=== PATIENT | male | born 1940 | race Hispanic/Latino ===

== ENCOUNTER → 2019-03-31 | Day surgery (SDC) | payer OTHER ==
[2018-03-20 09:40] LABS: BASOPHILS % 0.5 % (0.0-1.0); EOSINOPHILS % 0.7 % (0.0-6.0); HEMATOCRIT 44.6 % (38.2-49.6); HEMOGLOBIN 14.6 g/dL (14.0-18.0); LYMPHOCYTES # (AUTO) 1.5 (1.0-3.2); LYMPHOCYTES % 26.3 % (18.0-39.1); MEAN CORPUSCULAR HEMOGLOBIN 29.3 pg (28-32); MEAN CORPUSCULAR HGB CONC 32.7 g/dL (31-35); MEAN CORPUSCULAR VOLUME 89.6 fL (81-99); MONOCYTES # (AUTO) 0.8 (0.2-0.8); NEUTROPHILS # (AUTO) 3.4 (2.1-6.9); NEUTROPHILS % 59.3 % (38.7-80.0); PLATELET COUNT 180 x10e3/uL (140-360); RED BLOOD COUNT 4.98 x10e6/uL (4.3-5.7); RED CELL DISTRIBUTION WIDTH 13.6 % (11.7-14.4)
[2018-03-20 10:03] LABS: ALANINE AMINOTRANSFERASE 52 IU/L (0-55); ALBUMIN 3.8 g/dL (3.5-5.0); ALBUMIN/GLOBULIN RATIO 1.1 (0.8-2.0); ALKALINE PHOSPHATASE 56 IU/L (40-150); ANION GAP 9.6 mmol/L (8-16); BLOOD UREA NITROGEN 12 mg/dL (7-26); BUN/CREATININE RATIO 15 (6-25); CALCIUM 9.7 mg/dL (8.4-10.2); CARBON DIOXIDE 31 mmol/L (22-29); CHLORIDE 105 mmol/L (98-107); EST GLOMERULAR FILTRATION RATE > 60 ML/MIN (60-); GLUCOSE 111 mg/dL (74-118); POTASSIUM 4.6 mmol/L (3.5-5.1); SODIUM 141 mmol/L (136-145)
[2018-03-20 10:04] LABS: INR 2.27; PROTHROMBIN TIME 23.5 seconds (11.9-14.5)
[2018-03-20 10:06] LABS: PARTIAL THROMBOPLASTIN TIME 48.5 seconds (23.8-35.5)
--- OUTSIDE RECORDS SUMMARY | 2018-06-18 17:39 | XMS REPORT | Clinical Summary ---
Author Author [facility] Organization [facility] Address Unknown Phone Unavailable Care Team Providers Care Rug [employer]ter [place] Name Role Phone Bhupendra Chinchilla MD PCP Allergies No Known Allergies Current Medications Prescription Sig. Disp. Refills Start End Date Status Date metFORMIN (GLUCOPHAGE) Take 500 mg by mouth 2 Active 500 mg tablet (two) times a day with meals. carvedilol (COREG) 12.5 Take 12.5 mg by mouth 2 Active MG tablet (two) times a day with meals. gabapentin (NEURONTIN) Take 300 mg by mouth 3 Active 300 mg capsule (three) times a day. famotidine (PEPCID) 40 MG Take 40 mg by mouth Active tablet daily. aspirin (ECOTRIN) 81 MG Take 81 mg by mouth Active enteric coated tablet daily. simvastatin (ZOCOR) 40 MG Take 40 mg by mouth Active tablet nightly. rivaroxaban (XARELTO) 15 Take 15 mg by mouth. Active mg tablet pantoprazole (PROTONIX) Take 40 mg by mouth Active 40 MG EC tablet daily. sucralfate (CARAFATE) 1 Take 1 g by mouth 4 Active gram tablet (four) times a day. traMADol (ULTRAM) 50 mg Take 50 mg by mouth every Active tablet 6 (six) hours as needed for moderate pain. digOXIN (LANOXIN) 125 mcg Take 125 mcg by mouth Active tablet daily. meclizine (ANTIVERT) 12.5 Take 12.5 mg by mouth 3 Active mg tablet (three) times a day as needed for dizziness. Active Problems Problem Noted Date Acute hepatitis 08/20/2017 Hypertension 08/20/2017 Mixed hyperlipidemia 08/20/2017 A-fib (HCC) 08/20/2017 Encounters Date Type Specialty Care Team Description 08/20/2017 Office Visit Hepatology Nishant Issa MD Acute hepatitis (Primary Trudi Suarez, PAC Dx); Hypertension, unspecified type; Mixed hyperlipidemia; Atrial fibrillation, unspecified type 06/26/2017 Office Visit Hepatology Nishant Issa MD Abnormal liver enzymes (Primary Dx); Chronic hepatitis 06/13/2017 Hospital Radiology Nishant Issa MD Abnormal liver enzymes Encounter 06/05/2017 Office Visit Hepatology Nishant Issa MD Abnormal liver enzymes (Primary Dx); Cirrhosis of liver without ascites, unspecified hepatic cirrhosis type; Mesenteric ischemia; Screening for cancer after 03/24/2017 Social History Tobacco Use Types Packs/Day Years Used Date Never Assessed Sex Assigned at Date Recorded Not on file Last Filed Vital Signs Vital Sign Reading Time Taken Blood Pressure 120/57 08/20/2017 11:30 AM [employer] Pulse 73 08/20/2017 11:30 AM [employer] Temperature 36.1 C (97 F) 06/26/2017 11:28 AM CDT Respiratory Rate 18 06/13/2017 2:30 PM CDT Oxygen Saturation 98% 08/20/2017 11:30 AM [employer] Inhaled Oxygen - - Concentration Weight 67.6 kg (149 lb) 08/20/2017 11:30 AM [employer] Height 182.9 cm (6') 08/20/2017 11:30 AM [employer] Body Mass Index 20.21 08/20/2017 11:30 AM [employer] Plan of Treatment Health Maintenance Due Date Last Done Comments DIABETIC FOOT EXAM 1949 DIABETIC RETINAL EYE EXAM 1950 URINE MICROALBUMIN 1949 SHINGRIX VACCINE (#1) 1989 ZOSTER VACCINE 1999 PNEUMOCOCCAL 2004 POLYSACCHARIDE VACCINE AGE 65 AND OVER PNEUMOCOCCAL-13 2004 INFLUENZA VACCINE 04/16/2018 Procedures Procedure Name Priority Date/Time Associated Diagnosis Comments CRYOGLOBULIN Routine 08/20/2017 Acute hepatitis Results for this 12:02 PM [employer] Hypertension, unspecified procedure are in the type results section. Mixed hyperlipidemia Atrial fibrillation, unspecified type COMPREHENSIVE METABOLIC Routine 08/20/2017 Acute hepatitis Results for this PANEL 12:02 PM [employer] Hypertension, unspecified procedure are in the type results section. Mixed hyperlipidemia Atrial fibrillation, unspecified type CBC WITH PLATELET AND Routine 08/20/2017 Acute hepatitis Results for this DIFFERENTIAL 12:02 PM [employer] Hypertension, unspecified procedure are in the type results section. Mixed hyperlipidemia Atrial fibrillation, unspecified type PROTHROMBIN TIME WITH INR Routine 06/26/2017 Abnormal liver enzymes Results for this 12:08 PM CDT Chronic hepatitis procedure are in the results section. GGT Routine 06/26/2017 Abnormal liver enzymes Results for this 12:08 PM CDT Chronic hepatitis procedure are in the results section. COMPREHENSIVE METABOLIC Routine 06/26/2017 Abnormal liver enzymes Results for this PANEL 12:08 PM CDT Chronic hepatitis procedure are in the results section. ALPHA FETOPROTEIN Routine 06/26/2017 Abnormal liver enzymes Results for this 12:08 PM CDT Chronic hepatitis procedure are in the results section. CBC WITH PLATELET AND Routine 06/26/2017 Abnormal liver enzymes Results for this DIFFERENTIAL 12:08 PM CDT Chronic hepatitis procedure are in the results section. AMMONIA LEVEL Routine 06/26/2017 Abnormal liver enzymes Results for this 12:08 PM CDT Chronic hepatitis procedure are in the results section. POC GLUCOSE Routine 06/13/2017 Results for this 1:27 PM CDT procedure are in the results section. SURGICAL PATHOLOGY Routine 06/13/2017 Results for this REQUEST 1:03 PM CDT procedure are in the results section. IR TRANSJUGULAR LIVER Routine 06/13/2017 Abnormal liver enzymes Results for this BIOPSY 11:59 AM CDT procedure are in the results section. POC GLUCOSE Routine 06/13/2017 Results for this 10:31 AM CDT procedure are in the results section. MITOCHONDRIAL ANTIBODY Routine 06/05/2017 Abnormal liver enzymes Results for this W/REFL TITER 12:23 PM CDT Cirrhosis of liver procedure are in the without ascites, results section. unspecified hepatic cirrhosis type Mesenteric ischemia Screening for cancer BALJIT SCREEN W IFA W REFLEX Routine 06/05/2017 Abnormal liver enzymes Results for this TO TITER 12:23 PM CDT Cirrhosis of liver procedure are in the without ascites, results section. unspecified hepatic cirrhosis type Mesenteric ischemia Screening for cancer F-ACTIN (SMOOTH MUSCLE) Routine 06/05/2017 Abnormal liver enzymes Results for this ANTIBODY, IGG 12:23 PM CDT Cirrhosis of liver procedure are in the without ascites, results section. unspecified hepatic cirrhosis type Mesenteric ischemia Screening for cancer THYROID STIMULATING Routine 06/05/2017 Abnormal liver enzymes Results for this HORMONE 12:23 PM CDT Cirrhosis of liver procedure are in the without ascites, results section. unspecified hepatic cirrhosis type Mesenteric ischemia Screening for cancer RPR TITER WITH REFLEX TO Routine 06/05/2017 Abnormal liver enzymes Results for this CONFIRMATION 12:23 PM CDT Cirrhosis of liver procedure are in the without ascites, results section. unspecified hepatic cirrhosis type Mesenteric ischemia Screening for cancer HEPATITIS E VIRUS AB, IGM Routine 06/05/2017 Abnormal liver enzymes Results for this BY DONNA 12:23 PM CDT Cirrhosis of liver procedure are in the without ascites, results section. unspecified hepatic cirrhosis type Mesenteric ischemia Screening for cancer HEPATITIS E VIRUS (HEV) Routine 06/05/2017 Abnormal liver enzymes Results for this ANTIBODY (IGG) 12:23 PM CDT Cirrhosis of liver procedure are in the without ascites, results section. unspecified hepatic cirrhosis type Mesenteric ischemia Screening for cancer HEPATITIS B CORE ANTIBODY Routine 06/05/2017 Abnormal liver enzymes Results for this TOTAL 12:23 PM CDT Cirrhosis of liver procedure are in the without ascites, results section. unspecified hepatic cirrhosis type Mesenteric ischemia Screening for cancer HEMOGLOBIN A1C Routine 06/05/2017 Abnormal liver enzymes Results for this 12:23 PM CDT Cirrhosis of liver procedure are in the without ascites, results section. unspecified hepatic cirrhosis type Mesenteric ischemia Screening for cancer FERRITIN LEVEL Routine 06/05/2017 Abnormal liver enzymes Results for this 12:23 PM CDT Cirrhosis of liver procedure are in the without ascites, results section. unspecified hepatic cirrhosis type Mesenteric ischemia Screening for cancer SEDIMENTATION RATE Routine 06/05/2017 Abnormal liver enzymes Results for this 12:23 PM CDT Cirrhosis of liver procedure are in the without ascites, results section. unspecified hepatic cirrhosis type Mesenteric ischemia Screening for cancer PROTHROMBIN TIME WITH INR Routine 06/05/2017 Abnormal liver enzymes Results for this 12:23 PM CDT Cirrhosis of liver procedure are in the without ascites, results section. unspecified hepatic cirrhosis type Mesenteric ischemia Screening for cancer GGT Routine 06/05/2017 Abnormal liver enzymes Results for this 12:23 PM CDT Cirrhosis of liver procedure are in the without ascites, results section. unspecified hepatic cirrhosis type Mesenteric ischemia Screening for cancer COMPREHENSIVE METABOLIC Routine 06/05/2017 Abnormal liver enzymes Results for this PANEL 12:23 PM CDT Cirrhosis of liver procedure are in the without ascites, results section. unspecified hepatic cirrhosis type Mesenteric ischemia Screening for cancer CBC WITH PLATELET AND Routine 06/05/2017 Abnormal liver enzymes Results for this DIFFERENTIAL 12:23 PM CDT Cirrhosis of liver procedure are in the without ascites, results section. unspecified hepatic cirrhosis type Mesenteric ischemia Screening for cancer BILE ACIDS, TOTAL Routine 06/05/2017 Abnormal liver enzymes Results for this 12:23 PM CDT Cirrhosis of liver procedure are in the without ascites, results section. unspecified hepatic cirrhosis type Mesenteric ischemia Screening for cancer ALPHA FETOPROTEIN Routine 06/05/2017 Abnormal liver enzymes Results for this 12:23 PM CDT Cirrhosis of liver procedure are in the without ascites, results section. unspecified hepatic cirrhosis type Mesenteric ischemia Screening for cancer AMMONIA LEVEL Routine 06/05/2017 Abnormal liver enzymes Results for this 12:23 PM CDT Cirrhosis of liver procedure are in the without ascites, results section. unspecified hepatic cirrhosis type Mesenteric ischemia Screening for cancer ALPHA-1 ANTITRYPSIN Routine 06/05/2017 Abnormal liver enzymes Results for this PHENOTYPE 12:23 PM CDT Cirrhosis of liver procedure are in the without ascites, results section. unspecified hepatic cirrhosis type Mesenteric ischemia Screening for cancer ALPHA-1 ANTITRYPSIN LEVEL Routine 06/05/2017 Abnormal liver enzymes Results for this 12:23 PM CDT Cirrhosis of liver procedure are in the without ascites, results section. unspecified hepatic cirrhosis type Mesenteric ischemia Screening for cancer after 03/24/2017 Results * Cryoglobulin (08/20/2017 12:02 PM) Cryoglobulin NEGATIVE NEGATIVE [facility] % Cryocrit NONE DETECTED NONE DETECTED % [facility] Comment: [facility] The Cryocrit is primarily [facility] intended for following a patient with previously defined and quantitated cryoglobulins. The cryocrit may consist of cryoglobulins, fibrins, complement, or mixtures of these. If not previously characterized, consider ordering test code 66684, Cryoglobulin Screen with Reflex to Cryglobulin Profile, Serum. This test was developed and its analytical performance characteristics have been determined by [facility]. It has not been cleared or approved by FDA. This assay has been validated pursuant to the CLIA regulations and is used for clinical purposes. Specimen Blood Narrative Performed At FASTING:NO [facility] FASTING: NO Other Results Text Performing Organization Information: Site ID: [id number] Name: [facility], Address: [address] [place] [id number] Director: Hipolito Sánchez MD,PhD Performing Organization Address City/State/Zipcode Phone Number [facility]ANC[facility]OM[facility]/NOELLE [address] [place] [address] [phone] [facility] [address] * CBC with platelet and differential (08/20/2017 12:02 PM) Only the most recent of 3 results within the time period is included. WBC 7.1 3.8 - 10.8 Thousand/uL [employer] [facility] RBC 5.24 4.20 - 5.80 Million/uL [employer] [facility] HGB 15.4 13.2 - 17.1 g/dL [employer] [facility] HCT 46.2 38.5 - 50.0 % [employer] [facility] MCV 88.2 80.0 - 100.0 fL [employer] [facility] MCH 29.4 27.0 - 33.0 pg [employer] [facility] MCHC 33.3 32.0 - 36.0 g/dL [employer] [facility] RDW 12.9 11.0 - 15.0 % [employer] [facility] Platelet count 179 140 - 400 Thousand/uL [employer] [facility] MPV 11.6 7.5 - 12.5 fL [employer] [facility] Neutrophils, absolute 4,601 1,500 - 7,800 cells/uL [employer] [facility] Lymphocytes, absolute 1,612 850 - 3,900 cells/uL [employer] [facility] Monocytes, absolute 795 200 - 950 cells/uL [employer] [facility] Eosinophils, absolute 43 15 - 500 cells/uL [employer] [facility] Basophils, absolute 50 0 - 200 cells/uL [employer] [facility] Neutrophils 64.8 % [employer] [facility] Lymphocytes 22.7 % [employer] [facility] Monocytes 11.2 % [employer] [facility] Eosinophils 0.6 % [employer] [facility] Basophils + RC 0.7 % [employer] [facility] Specimen Blood Narrative Performed At FASTING:NO [facility] FASTING: NO Other Results Text Performing Organization Information: Site ID: [id number] Name: [facility] Address: [address] [place] [phone] Director: Sobia Bajwa MD Performing Organization Address City/State/Zipcode Phone Number [facility] [place] [phone] * Comprehensive metabolic panel (08/20/2017 12:02 PM) Only the most recent of 3 results within the time period is included. Glucose 106 (H) 65 - 99 mg/dL [employer] Comment: MENASHA Fasting reference interval For someone without known diabetes, a glucose value between 100 and 125 mg/dL is consistent with prediabetes and should be confirmed with a follow-up test. BUN, whole blood 10 7 - 25 mg/dL [employer] [facility] Creatinine 0.99 0.70 - 1.18 mg/dL [employer] Comment: [facility]SHA For patients >49 years of age, the reference limit for Creatinine is approximately 13% higher for people identified as -St Helenian. EGFR Non-Afr. [place]ian 73 > OR=60 mL/min/1.73m2 [facility] EGFR 85 > OR=60 mL/min/1.73m2 [facility] BUN/creatinine ratio NOT APPLICABLE 6 - 22 (calc) [facility] Sodium 142 135 - 146 mmol/L [facility] Potassium 4.7 3.5 - 5.3 mmol/L [facility] Chloride 104 98 - 110 mmol/L [facility] CO2 30 20 - 31 mmol/L [facility] Calcium 10.2 8.6 - 10.3 mg/dL [facility] Protein 7.2 6.1 - 8.1 g/dL [facility] Albumin, S 4.5 3.6 - 5.1 g/dL [facility] Globulin, total 2.7 1.9 - 3.7 g/dL (calc) [facility] Albumin/globulin ratio 1.7 1.0 - 2.5 (calc) [facility] Total bilirubin 0.9 0.2 - 1.2 mg/dL [facility] Alkaline phosphatase 63 40 - 115 U/L [facility] AST 57 (H) 10 - 35 U/L [facility] ALT 69 (H) 9 - 46 U/L [facility] Specimen Blood Narrative Performed At FASTING:NO [facility] FASTING: NO Other Results Text Performing Organization Information: Site ID: [id number] Name: [facility] Address: [address] [place] [phone] Director: Sobia Bajwa MD Performing Organization Address City/State/Zipcode Phone Number [place] [phone] * Alpha fetoprotein (06/26/2017 12:08 PM) Only the most recent of 2 results within the time period is included. Alpha fetoprotein 6.7 (H) <6.1 ng/mL [facility] Comment: [facility] This test was performed using II the Krystin Grey chemiluminescent method. Values obtained from different assay methods cannot be used interchangeably. AFP levels, regardless of value, should not be interpreted as absolute evidence of the presence or absence of disease. Specimen Blood Other Results Text Performing Organization Information: Site ID: [id number] Name: [facility] Address: [address] [place] [address] Director: Dr. Nishant Mckeon Performing Organization Address City/[facility]/[place] Phone Number [employer] [address] [address] II * Prothrombin time with INR (06/26/2017 12:08 PM) Only the most recent of 2 results within the time period is included. INR 1.3 (H) [facility] Comment: [facility] Reference Range 0.9-1.1 Moderate-intensity Warfarin Therapy 2.0-3.0 Higher-intensity Warfarin Therapy 3.0-4.0 Prothrombin time 14.1 (H) 9.0 - 11.5 sec [facility] Comment: MENASHA For more information on this test, go to: http://[email or web address].com/faq/CMZ226 Specimen Blood Other Results Text Performing Organization Information: Site ID: [id number] Name: [facility] Address: [address] [place] [phone] Director: Sobia Bajwa MD Performing Organization Address City/[facility]/[place] Phone Number [employer] [address] [address] [phone] * GGT (06/26/2017 12:08 PM) Only the most recent of 2 results within the time period is included. GGT 77 (H) 3 - 70 U/L [employer] [facility] Specimen Blood Other Results Text Performing Organization Information: Site ID: [id number] Name: [facility] Address: [address] [place] [phone] Director: Sobia Bajwa MD Performing Organization Address City/[facility]/Zipcode Phone Number [employer] [address] [address] * Ammonia level (06/26/2017 12:08 PM) Only the most recent of 2 results within the time period is included. Ammonia 53 (H) < OR=47 umol/L [employer] [facility] Specimen Blood Other Results Text Performing Organization Information: Site ID: [id number] Name: [facility] Address: [address] [place], [place] [phone] Director: Sobia Bajwa MD Performing Organization Address City/[facility]/Zipcode Phone Number [employer] JONES [address] [place] [address] * POC glucose (06/13/2017 1:27 PM) Only the most recent of 2 results within the time period is included. POC glucose 84 65 - 99 mg/dL [facility] DEPARTMENT OF Comment: PATHOLOGY AND H Notified RN GENOMIC MEDICINE Meter ID: [id number] Environmental Permitting Specialist: Lasha Jj Performing Organization Address City/State/Zipcode Phone Number [facility] DEPARTMENT OF [address] [place] [address] PATHOLOGY AND GENOMIC MEDICINE * Surgical pathology request (06/13/2017 1:03 PM) [facility] DEPARTMENT OF PATHOLOGY AND GENOMIC MEDICINE Surgical pathology report See link below for PDF Lab [facility] DEPARTMENT OF Report PATHOLOGY AND GENOMIC MEDICINE Performing Organization Address [facility] Phone Number [facility] [place] [address] PATHOLOGY AND GENOMIC MEDICINE * IR Transjugular Liver Biopsy (06/13/2017 11:59 AM) Narrative Performed At EXAMINATION: IR TRANSJUGULAR LIVER BIOPSY [facility] CLINICAL HISTORY: R74.8 Abnormal levels of other serum enzymes, ABNORMAL LIVER FUNCTION TESTS PROCEDURE: Transjugular liver biopsy with portal venous pressure measurements Performing Radiologist: Sg Martínez MD Assistants: None Pre Procedure Diagnosis: R74.8 Abnormal levels of other serum enzymes, ABNORMAL LIVER FUNCTION TESTS Post Procedure Diagnosis: R74.8 Abnormal levels of other serum enzymes, ABNORMAL LIVER FUNCTION TESTS Indication: Elevated liver function tests. Concern for medication-induced hepatitis. Complications: No immediate post procedure complications. IMPRESSION: 1. Technically successful transjugular liver biopsy from the right hepatic vein. 2. Portal venous pressure measurements: Right Atrium: 1 mmHg Free Hepatic: 1 mmHg Wedge Hepatic: 4 mmHg 3. Venogram of the right hepatic vein shows sluggish flow without stenosis. 4. The right internal jugular vein is patent and compressible on pre-procedure ultrasound. PLAN: The patient will be observed for approximately 3 hours in the recovery area to monitor vital signs. If vital signs are stable, the patient will be discharged home. -- -- PROCEDURE SUMMARY: 1. Venous access with ultrasound guidance 2. Right hepatic venogram 3. Right atrial as well as hepatic/portal venous pressure measurements 4. Transjugular liver biopsy PROCEDURE DETAILS: Pre-procedure: Comparison studies: None Written and informed consent for the procedure and monitored conscious sedation was obtained from the patient. Prophylactic antibiotics: None Preparation: The right neck was prepared and draped using all elements of maximal sterile barrier technique including sterile gloves, sterile gown, catheter, mask, large sterile sheet, sterile ultrasound probe cover, hand hygiene and cutaneous antisepsis using chlorhexidine. Anesthesia/Sedation: Level of anesthesia: Moderate Sedation Medications used: Fentanyl and Versed, 1% lidocaine Anesthesia administration: Pulse oximetry, heart rate, and blood pressure were continuously monitored by a radiology nurse and the performing provider. Duration of intraservice geck-hi-[id number] anesthesia/sedation: 21 minutes Access: Local anesthesia was administered. The right internal jugular vein was evaluated with preprocedure ultrasound and noted to be patent. Real-time ultrasound was used to visualize needle entry into the vessel and a permanent image was stored. A 0.035 inch Amplatz was advanced into the inferior vena cava and an image was archived. Access technique: 5 Montenegrin micropuncture set Transjugular liver biopsy: A 10 Montenegrin sheath was advanced over the Amplatz wire and positioned within the right atrium. Using a 5 Montenegrin directional catheter, the right hepatic vein was accessed and a venogram was performed confirming positioning. Free, portal venous, and right atrial pressures were then obtained. The sheath was then advanced into the right hepatic vein through which a biopsy needle kit was advanced and 4 x 18-gauge core biopsies were obtained. Biopsy equipment: Dextera Biopsy needle gauge: 18 gauge Closure: The catheters and wires were then removed and hemostasis was achieved with manual compression. Access site closure technique: Manual compression Contrast: Contrast agent: Omnipaque Contrast volume: N/A Radiation dose: Total Fluoroscopic dose: Reference air Kerma 52 mGy. Additional details: Additional description of procedure: N/A Additional findings: N/A Equipment details: N/A Estimated blood loss: Less than 10 cc [facility]-[id number] [facility]-[id number] Procedure Note Hm Interface, Radiology Results Incoming - 06/13/2017 6:30 PM CDT EXAMINATION: IR TRANSJUGULAR LIVER BIOPSY CLINICAL HISTORY: R74.8 Abnormal levels of other serum enzymes, ABNORMAL LIVER FUNCTION TESTS PROCEDURE: Transjugular liver biopsy with portal venous pressure measurements Performing Radiologist: Sg Martínez MD Assistants: None Pre Procedure Diagnosis: R74.8 Abnormal levels of other serum enzymes, ABNORMAL LIVER FUNCTION TESTS Post Procedure Diagnosis: R74.8 Abnormal levels of other serum enzymes, ABNORMAL LIVER FUNCTION TESTS Indication: Elevated liver function tests. Concern for medication-induced hepatitis. Complications: No immediate post procedure complications. IMPRESSION: 1. Technically successful transjugular liver biopsy from the right hepatic vein. 2. Portal venous pressure measurements: Right Atrium: 1 mmHg Free Hepatic: 1 mmHg Wedge Hepatic: 4 mmHg 3. Venogram of the right hepatic vein shows sluggish flow without stenosis. 4. The right internal jugular vein is patent and compressible on pre- procedure ultrasound. PLAN: The patient will be observed for approximately 3 hours in the recovery area to monitor vital signs. If vital signs are stable, the patient will be discharged home. PROCEDURE SUMMARY: 1. Venous access with ultrasound guidance 2. Right hepatic venogram 3. Right atrial as well as hepatic/portal venous pressure measurements 4. Transjugular liver biopsy PROCEDURE DETAILS: Pre-procedure: Comparison studies: None Written and informed consent for the procedure and monitored conscious sedation was obtained from the patient. Prophylactic antibiotics: None Preparation: The right neck was prepared and draped using all elements of maximal sterile barrier technique including sterile gloves, sterile gown, catheter, mask, large sterile sheet, sterile ultrasound probe cover, hand hygiene and cutaneous antisepsis using chlorhexidine. Anesthesia/Sedation: Level of anesthesia: Moderate Sedation Medications used: Fentanyl and Versed, 1% lidocaine Anesthesia administration: Pulse oximetry, heart rate, and blood pressure were continuously monitored by a radiology nurse and the performing provider. Duration of intraservice [id number] anesthesia/sedation: 21 minutes Access: Local anesthesia was administered. The right internal jugular vein was evaluated with preprocedure ultrasound and noted to be patent. Real-time ultrasound was used to visualize needle entry into the vessel and a permanent image was stored. A 0.035 inch Amplatz was advanced into the inferior vena cava and an image was archived. Access technique: 5 Montenegrin micropuncture set Transjugular liver biopsy: A 10 Montenegrin sheath was advanced over the Amplatz wire and positioned within the right atrium. Using a 5 Montenegrin directional catheter, the right hepatic vein was accessed and a venogram was performed confirming positioning. Free, portal venous, and right atrial pressures were then obtained. The sheath was then advanced into the right hepatic vein through which a biopsy needle kit was advanced and 4 x 18- gauge core biopsies were obtained. Biopsy equipment: Dextera Biopsy needle gauge: 18 gauge Closure: The catheters and wires were then removed and hemostasis was achieved with manual compression. Access site closure technique: Manual compression Contrast: Contrast agent: Omnipaque Contrast volume: N/A Radiation dose: Total Fluoroscopic dose: Reference air Kerma 52 mGy. Additional details: Additional description of procedure: N/A Additional findings: N/A Equipment details: N/A Estimated blood loss: Less than 10 cc [facility]-[id number] [facility]-[id number] Performing Organization Address City/State/Zipcode Phone Number [address] [place] [address] * Hepatitis E virus (HEV) antibody (IgG) (06/05/2017 12:23 PM) Hepatitis E IgG NOT DETECTED [email or web address] Comment: REFERENCE RANGE: NOT DETECTED Hepatitis E virus (HEV) is a major cause of enteric non-A hepatitis worldwide. HEV IgG is typically detected within one month after infection, and persists for months to years after recovery. Approximately 20% of the population is positive for HEV IgG, indicating that HEV exposure is more common than previously thought. This test was developed and its analytical performance characteristics have been determined by [facility]. It has not been cleared or approved by FDA. This assay has been validated pursuant to the CLIA regulations and is used for clinical purposes. Narrative Performed At FASTING:NO [facility]ST Other Results Text Performing Organization Information: Site ID: [id number] Name: [facility] Address: [address] [place] [phone] Director: Walt Morrison MD Performing Organization Address [facility]ust[facility] Phone Number Lolay [address] [place] [phone] * BALJIT SCREEN W IFA W REFLEX TO TITER (06/05/2017 12:23 PM) BALJIT screen NEGATIVE NEGATIVE [facility] Comment: [facility] BALJIT IFA is a first line screen II for detecting the presence of up to approximately 150 autoantibodies in various autoimmune diseases. A negative BALJIT IFA result suggests BALJIT-associated autoimmune diseases are not present at this time. Visit Physician FAQs for interpretation of all antibodies in the [place], prevalence, and association with diseases at http://education.Mpax.com/ faq/FDN430 Specimen Blood Narrative Performed At FASTING:NO [facility] Other Results Text Performing Organization Information: Site ID: IG Name: [facility] Address: [address] [place] [address] Director: Dr. Nishant Mckeno Performing Organization Address [facility]/Zipcode Phone Number Technology [employer] [place] [address] II * MITOCHONDRIAL ANTIBODY W/REFL TITER (06/05/2017 12:23 PM) Mitochondrial Ab NEGATIVE NEGATIVE [facility] Comment: [employer] This test was developed and [facility] its analytical performance characteristics have been determined by [facility]. It has not been cleared or approved by FDA. This assay has been validated pursuant to the CLIA regulations and is used for clinical purposes. Mitochondrial Ab titer TNP titer [facility] Comment: [employer] TNP-Screening test Negative or SJC Not Detected. Titer not performed. Narrative Performed At FASTING:NO [facility] Other Results Text Performing Organization Information: Site ID: EZ Name: [facility] [facility], Address: [address] [place] [phone] Director: Hipolito Sánchez MD,PhD Performing Organization Address [facility]/[place]ust[place] Phone Number Technology [employer]/DRAKE[address] [facility] [address] * RPR titer with reflex to confirmation (06/05/2017 12:23 PM) RPR (dx) w/refl titer and NON-REACTIVE NON-REACTIVE [facility] confirmatory testing MENASHA Specimen Blood Narrative Performed At FASTING:NO [facility] Other Results Text Performing Organization Information: Site ID: RGA Name: [facility] Address: [address] [place] [phone] Director: Sobia Bajwa MD Performing Organization Address [facility]/[place] Phone [place] [address] [phone] * Hepatitis E virus Ab, IgM by DONNA (06/05/2017 12:23 PM) Hepatitis E IgM NOT DETECTED [facility] Comment: REFERENCE RANGE: NOT DETECTED Hepatitis E Virus (HEV) is a major cause of enteric non-A hepatitis worldwide. HEV IgM is typically detected within 2-4 weeks after infection, and then persists for about two months This test was developed and its analytical performance characteristics have been determined by [facility]. It has not been cleared or approved by FDA. This assay has been validated pursuant to the CLIA regulations and is used for clinical purposes. Specimen Blood Narrative Performed At FASTING:NO [facility]ST Other Results Text Performing Organization Information: Site ID: TXC Name: [facility] Address: [address] [place] [phone] Director: Walt Morrison MD Performing Organization Address City/State/Zipcode Phone Number FRNACIA [email or web address] [address] [place] [address] [phone] * Alpha-1 antitrypsin phenotype (06/05/2017 12:23 PM) Alpha-1 antitrypsin SEE NOTE [facility] Comment: DIAGNOSTICS/NOELLE THIS PATIENT'S [facility] [id number]-[id number] PHENOTYPE IS PI*MM. 90% of normal individuals have the MM phenotype, with normal quantitative AAT levels. Many phenotypic patterns have been described, including deficiency states with F, S, Z, or other alleles. As a general estimation, compared to M allele of 100% of normal V-0-Fojlmwoaamv protein, the S allele produces approximately 60% and the Z allele 20%. For example, an MS phenotype would have about 80% of normal D-4-Yihxzmgvjsi protein level, a 50% contribution from the M allele and 30% from the S allele. A ZZ phenotype would have about 20% of normal levels, a 10% contribution from each Z gene. The F allele has normal D-3-Vpnpbeqygtt levels, but the kinetics of elastase inhibition is not as efficient as an M allele product; F alleles should be considered functionally mildly deficient. Other variants are identifiable by phenotypic analysis. These include CM, DP, EM, GM, IS, LM, M1M2, M3M3, MP, MT, XX, MY, and M1N. I, P, T and null alleles are considered deleterious. C, D, E, G, L, M1, M2, M3, X and Y alleles are generally considered normal variants. The MZ-Perdomo phenotype is a normal variant; care should be taken to avoid confusion with the deficient MZ phenotype. Specimen Blood Narrative Performed At FASTING:NO [facility]ST Other Results Text Performing Organization Information: Site ID: EZ Name: [facility], Address: [address] [place] [phone] Director: Hipolito Sánchez MD,PhD Performing Organization Address [facility]/[employer] Phone Number Technology [employer]/DRAKE [address] [place] [address] [phone] [facility] [address] * F-actin (smooth muscle) antibody, IgG (06/05/2017 12:23 PM) F-actin (smooth muscle) <20 U [facility] Ab, IgG Comment: DIAGNOSTICS/DRAKE Reference [facility] Range: <20 NEGATIVE > OR=20 POSITIVE Antibodies recognizing actin are the main component of smooth muscle antibodies associated with autoimmune liver disease. Actin antibodies are found in approximately 75% of patients with autoimmune hepatitis (AIH) type 1, approximately 65% of patients with autoimmune cholangitis, approximately 30% of patients with primary biliary cirrhosis, and approximately 2% of healthy people. High values are closely correlated with AIH type 1. Specimen Blood Narrative Performed At FASTING:NO [facility] Other Results Text Performing Organization Information: Site ID: EZ Name: [employer] [facility], Address: [address] [place] [phone] Director: Hipolito Sánchez MD,PhD Performing Organization Address [facility] Phone Number Technology [employer] [address] [place] [address] [facility] [address] * Alpha-1 antitrypsin level (06/05/2017 12:23 PM) Alpha-1 antitrypsin 170 83 - 199 mg/dL [facility] II Specimen Blood Narrative Performed At FASTING:NO [facility]ST Other Results Text Performing Organization Information: Site ID: IG Name: [facility] Address: [address] [place] [address] Director: Dr. Nishant Mckeon Performing Organization Address [facility]/[place] Phone Number [facility] [address] [place] [address] II * Bile acids, total (06/05/2017 12:23 PM) Bile acids, total 9 0 - 19 umol/L [employer] [place] Specimen Blood Narrative Performed At FASTING:NO [facility] Other Results Text Performing Organization Information: Site ID: AMD Name: [facility] Address: [address] [place] [address] Director: Marshall Stovall M.D.,PhD Performing Organization Address City/State/Zipcode Phone Number [facility] FRANCIA [place]TGOMERY/NOELLE [address] [place], [place] * Hepatitis B core antibody total (06/05/2017 12:23 PM) Hepatitis B core total Ab NON-REACTIVE NON-REACTIVE [employer] MENASHA Specimen Blood Narrative Performed At FASTING:NO [facility]ST Other Results Text Performing Organization Information: Site ID: RGA Name: [facility] Address: [address] [place] [phone] Director: Sobia Bajwa MD Performing Organization Address [facility]/State/Rustcode Phone Number Technology [employer] [address] [address] * Sedimentation rate (06/05/2017 12:23 PM) Sedimentation rate 6 < OR=20 mm/h [employer] MENASHA Specimen Blood Narrative Performed At FASTING:NO [facility] Other Results Text Performing Organization Information: Site ID: RGA Name: [facility] Address: [address] [place] [phone] Director: Sobia Bajwa MD Performing Organization Address [facility]/[place] Phone Number Technology [employer] [address] [address] * Thyroid stimulating hormone (06/05/2017 12:23 PM) TSH 0.86 0.40 - 4.50 mIU/L [employer] MENASHA Specimen Blood Narrative Performed At FASTING:NO [facility] Other Results Text Performing Organization Information: Site ID: RGA Name: [facility] Address: [address] [place] [phone] Director: Sobia Bajwa MD Performing Organization Address [facility]/[employer] Phone Number Technology [employer] [address] [address] [phone] * Hemoglobin A1c (06/05/2017 12:23 PM) Hemoglobin A1C 6.2 (H) <5.7 % of total Hgb [employer] Comment: MENASHA For someone without known diabetes, a hemoglobin A1c value between 5.7% and 6.4% is consistent with prediabetes and should be confirmed with a follow-up test. For someone with known diabetes, a value <7% indicates that their diabetes is well controlled. A1c targets should be individualized based on duration of diabetes, age, comorbid conditions, and other considerations. This assay result is consistent with an increased risk of diabetes. Currently, no consensus exists regarding use of hemoglobin A1c for diagnosis of diabetes for children. Specimen Blood Narrative Performed At FASTING:NO [facility] Other Results Text Performing Organization Information: Site ID: RGA Name: [facility] Address: [address] [place] [phone] Director: Sobia Bajwa MD Performing Organization Address City/State/Rust[place] Phone Number Technology [employer] [address] [address] * Ferritin level (06/05/2017 12:23 PM) Ferritin level 36 20 - 380 ng/mL [employer] MENASHA Specimen Blood Narrative Performed At FASTING:NO [facility] Other Results Text Performing Organization Information: Site ID: RGA Name: [facility] Address: [address] [place] [phone] Director: Sobia Bajwa MD Performing Organization Address City/State/Zipcode Phone Number [employer] [address] [address] [phone] after 03/24/2017 Insurance Payer Benefit Subscriber ID Type Phone Address Plan / Group [employer] TEX[employer]US xxxxxxxxx [facility]
--- OUTSIDE RECORDS SUMMARY | 2018-06-18 21:34 | XMS REPORT | Clinical Summary ---
Author Author [facility] Address Unknown Phone Unavailable Care Team Providers Care Cafeteria Aide Name Role Phone Bhupendra Chinchilla MD PCP [...] type; Mesenteric ischemia; Screening for cancer after 04/09/2017 Social History Tobacco Use Types Packs/Day Years Used Date Never Assessed Sex Assigned at Date Recorded Not on file Last Filed Vital Signs Vital Sign Reading Time Taken Blood Pressure 120/57 08/20/2017 11:30 AM [employer]MENT[employer]AD[employer] Pulse 73 08/20/2017 11:30 AM ENVIRONMENTAL HEALTH AND SAFETY LEADER Temperature 36.1 C (97 F) 06/26/2017 11:28 AM CDT Respiratory Rate 18 06/13/2017 2:30 PM CDT Oxygen Saturation 98% 08/20/2017 11:30 AM ENVIRONMENTAL HEALTH AND SAFETY LEADER Inhaled Oxygen - - Concentration Weight 67.6 kg (149 lb) 08/20/2017 11:30 AM ENVIRONMENTAL HEALTH AND SAFETY LEADER Height 182.9 cm (6') 08/20/2017 11:30 AM ENVIRONMENTAL HEALTH AND SAFETY LEADER Body Mass Index 20.21 08/20/2017 11:30 AM ENVIRONMENTAL HEALTH AND SAFETY LEADER Plan of Treatment Health Maintenance Due Date Last Done Comments DIABETIC FOOT EXAM 1949 DIABETIC RETINAL EYE EXAM 1950 URINE MICROALBUMIN 1949 SHINGRIX VACCINE (#1) 1989 ZOSTER VACCINE 1999 PNEUMOCOCCAL 2004 POLYSACCHARIDE VACCINE AGE 65 AND OVER PNEUMOCOCCAL-13 2004 INFLUENZA VACCINE 04/16/2018 Procedures Procedure Name Priority Date/Time Associated Diagnosis Comments CRYOGLOBULIN Routine 08/20/2017 Acute hepatitis Results for this 12:02 PM ENV[employer]ONMENT[employer] HE[employer]Y LEADER Hypertension, unspecified procedure are in the type results section. Mixed hyperlipidemia Atrial fibrillation, unspecified type COMPREHENSIVE METABOLIC Routine 08/20/2017 Acute hepatitis Results for this PANEL 12:02 PM ENVIRONMENTAL HEALTH AND SAFETY LEADER Hypertension, unspecified procedure are in the type results section. Mixed hyperlipidemia Atrial fibrillation, unspecified type CBC WITH PLATELET AND Routine 08/20/2017 Acute hepatitis Results for this DIFFERENTIAL 12:02 PM ENVIRONMENTAL HEALTH AND SAFETY LEADER Hypertension, unspecified procedure are in the type [...] type Mesenteric ischemia Screening for cancer after 04/09/2017 Results * Cryoglobulin (08/20/2017 12:02 PM) Cryoglobulin NEGATIVE NEGATIVE [employer] [facility] % Cryocrit NONE DETECTED NONE DETECTED % [facility] Comment: DIAGNOSTICS/NOELLE The Cryocrit is primarily [facility] intended for following a patient with previously defined and quantitated cryoglobulins. The cryocrit may consist of cryoglobulins, fibrins, complement, or mixtures of these. If not previously characterized, consider ordering test code 76806, Cryoglobulin Screen with Reflex to Cryglobulin Profile, Serum. This test was developed and its analytical performance characteristics have been determined by [facility]. It has not been cleared or approved by FDA. This assay has been validated pursuant to the CLIA regulations and is used for clinical purposes. Specimen Blood Narrative Performed At FASTING:NO [facility] FASTING: NO Other Results Text Performing Organization Information: Site ID: EZ Name: [facility], Address: [address] [place] [phone] Director: Hipolito Sánchez MD,PhD Performing Organization Address City/State/Zipcode Phone Number [facility]/NOELLE [address] [place] [address] [phone] [facility] [phone] * CBC with platelet and differential (08/20/2017 12:02 PM) Only the most recent of 3 results within the time period is included. WBC 7.1 3.8 - 10.8 Thousand/uL [facility] [place] RBC 5.24 4.20 - 5.80 Million/uL [facility] [place] HGB 15.4 13.2 - 17.1 g/dL [facility] [place] HCT 46.2 38.5 - 50.0 % [facility] [place] MCV 88.2 80.0 - 100.0 fL [facility] [place] MCH 29.4 27.0 - 33.0 pg [facility] [place] MCHC 33.3 32.0 - 36.0 g/dL [facility] [place] RDW 12.9 11.0 - 15.0 % [facility] [place] Platelet count 179 140 - 400 Thousand/uL [facility] [place] MPV 11.6 7.5 - 12.5 fL [facility] [place] Neutrophils, absolute 4,601 1,500 - 7,800 cells/uL [facility] [place] Lymphocytes, absolute 1,612 850 - 3,900 cells/uL [facility] [place] Monocytes, absolute 795 200 - 950 cells/uL [facility] [place] Eosinophils, absolute 43 15 - 500 cells/uL [facility] [place] Basophils, absolute 50 0 - 200 cells/uL [facility] [place] Neutrophils 64.8 % [facility] [place] Lymphocytes 22.7 % [facility] [place] Monocytes 11.2 % [facility] [place] Eosinophils 0.6 % [facility] [place] Basophils + RC 0.7 % [facility] [place] Specimen Blood Narrative Performed At FASTING:NO [facility] FASTING: NO Other Results Text Performing Organization Information: Site ID: RGA Name: [facility] Address: [address] [place] [phone] Director: Sobia Bajwa MD Performing Organization Address City/State/Zipcode Phone Number [facility] [employer] [place] [phone] * Comprehensive metabolic panel (08/20/2017 12:02 PM) Only the most recent of 3 results within the time period is included. Glucose 106 (H) 65 - 99 mg/dL [facility] Comment: [place] Fasting reference interval For someone without known diabetes, a glucose value between 100 and 125 mg/dL is consistent with prediabetes and should be confirmed with a follow-up test. BUN, whole blood 10 7 - 25 mg/dL [facility] [place] Creatinine 0.99 0.70 - 1.18 mg/dL [employer] [facility] Comment: [place] For patients >49 years of age, the reference limit for Creatinine is approximately 13% higher for people identified as -Danish. EGFR Non-Afr. Danish 73 > OR=60 mL/min/1.73m2 [facility] EGFR 85 > OR=60 mL/min/1.73m2 [facility] BUN/creatinine ratio NOT APPLICABLE 6 - 22 (calc) [facility] Sodium 142 135 - 146 mmol/L [facility] Potassium 4.7 3.5 - 5.3 mmol/L [facility] Chloride 104 98 - 110 mmol/L [facility] CO2 30 20 - 31 mmol/L [facility] Calcium 10.2 8.6 - 10.3 mg/dL [facility] Protein 7.2 6.1 - 8.1 g/dL [facility] Albumin, S 4.5 3.6 - 5.1 g/dL [facility] Globulin, total 2.7 1.9 - 3.7 g/dL (calc) [facility] Albumin/globulin ratio 1.7 1.0 - 2.5 (calc) [facility] Total bilirubin 0.9 0.2 - 1.2 mg/dL [facility] Alkaline phosphatase 63 40 - 115 U/L [facility] AST 57 (H) 10 - 35 U/L [facility] ALT 69 (H) 9 - 46 U/L [facility] Specimen Blood Narrative Performed At FASTING:NO [facility] FASTING: NO Other Results Text Performing Organization Information: Site ID: RGA Name: [facility] Lab Address: [address] [place] [phone] Director: Sobia Bajwa MD Performing Organization Address City/State/Zipcode Phone Number [place] [phone] * Alpha fetoprotein (06/26/2017 12:08 PM) Only [...] Performing Organization Information: Site ID: IG Name: [facility] Address: [address] [place] [address] Director: Dr. Nishant Mckeon Performing Organization Address City/[facility] Medical Centercode Phone Number [employer] [address] II * Prothrombin time with INR (06/26/2017 12:08 PM) Only the most recent of 2 results within the time period is included. INR 1.3 (H) [employer] [facility] Comment: [place] Reference Range 0.9-1.1 Moderate-intensity Warfarin Therapy 2.0-3.0 Higher-intensity Warfarin Therapy 3.0-4.0 Prothrombin time 14.1 (H) 9.0 - 11.5 sec [employer] [facility] Comment: [place] For more information on this test, go to: http://education.3DVista.com/faq/CRO787 Specimen Blood Other Results Text Performing Organization Information: Site ID: RGA Name: [facility] Address: [address] [place] [phone] Director: Sobia Bajwa MD Performing Organization Address City/[facility] Centercohi Phone Number [employer] [address] [address] * GGT (06/26/2017 12:08 PM) Only the most recent of 2 results within the time period is included. GGT 77 (H) 3 - 70 U/L [facility] [place] Specimen Blood Other Results Text Performing Organization Information: Site ID: RGA Name: [facility] Address: [address] [place] [phone] Director: Sobia Bajwa MD Performing Organization Address City/[facility]/Zipcode Phone Number [employer] [address] [address] * Ammonia level (06/26/2017 12:08 PM) Only the most recent of 2 results within the time period is included. Ammonia 53 (H) < OR=47 umol/L [facility] [place] Specimen Blood Other Results Text Performing Organization Information: Site ID: RGA Name: [facility] Address: [address] [place], [place] [phone] Director: Sobia Bajwa MD Performing Organization Address City/[facility]/Zipcode Phone Number [employer] JONES [address] [place] [address] * POC glucose (06/13/2017 1:27 PM) Only the most recent of 2 results within the time period is included. POC glucose 84 65 - 99 mg/dL [facility]PART[facility] OF Comment: PATHOLOGY AND H Notified RN GENOMIC MEDICINE Meter ID: [id number] [employer] Manager: Lasha Jj Performing Organization Address City/State/Zipcode Phone Number [facility] OF [address] [place] [address] PATHOLOGY AND GENOMIC MEDICINE * Surgical pathology request (06/13/2017 1:03 PM) [facility] OF PATHOLOGY AND GENOMIC MEDICINE Surgical pathology report See link below for PDF Lab [facility] OF Report PATHOLOGY AND GENOMIC MEDICINE Performing Organization Address [facility] Phone Number [facility] [address] PATHOLOGY AND GENOMIC MEDICINE * IR Transjugular Liver Biopsy (06/13/2017 11:59 AM) Narrative Performed At EXAMINATION: IR TRANSJUGULAR LIVER BIOPSY [facility] CLINICAL HISTORY: R74.8 Abnormal levels of other [...] and the performing provider. Duration of intraservice dcdx-kq-rgva anesthesia/sedation: 21 minutes Access: Local anesthesia was administered. The right internal jugular vein was evaluated with preprocedure ultrasound and noted to be patent. Real-time ultrasound was used to visualize needle entry into the vessel and a permanent image was stored. A 0.035 inch Amplatz was advanced into the inferior vena cava and an image was archived. Access technique: 5 Cypriot micropuncture set Transjugular liver biopsy: A 10 Cypriot sheath was advanced over the Amplatz wire and positioned within the right atrium. Using a 5 Cypriot directional catheter, the right hepatic vein was [...] Estimated blood loss: Less than 10 cc [facility]-[id number] [facility]-[id number] Procedure Note Hm Interface, Radiology Results Incoming [...] and the performing provider. Duration of intraservice ssck-en-vtda anesthesia/sedation: 21 minutes Access: Local anesthesia was administered. The right internal jugular vein was evaluated with preprocedure ultrasound and noted to be patent. Real-time ultrasound was used to visualize needle entry into the vessel and a permanent image was stored. A 0.035 inch Amplatz was advanced into the inferior vena cava and an image was archived. Access technique: 5 Cypriot micropuncture set Transjugular liver biopsy: A 10 Cypriot sheath was advanced over the Amplatz wire and positioned within the right atrium. Using a 5 Cypriot directional catheter, the right hepatic vein was [...] Estimated blood loss: Less than 10 cc [facility]-[id number] [facility]-[id number] Performing Organization Address City/State/Zipcode Phone Number [facility] [address] [place] [address] * Hepatitis E virus (HEV) antibody (IgG) (06/05/2017 12:23 PM) Hepatitis E IgG NOT DETECTED [facility] Comment: REFERENCE RANGE: NOT DETECTED Hepatitis E [...] analytical performance characteristics have been determined by [facility]. It has not been cleared or approved by FDA. This assay has been validated pursuant to the CLIA regulations and is used for clinical purposes. Narrative Performed At FASTING:NO [facility] Other Results Text Performing Organization Information: Site ID: TXC Name: [facility], [facility] Address: [address] [place] [address] Director: Walt Morrison MD Performing Organization Address [facility] Medical Centercode Phone Number [employer] [address] [place] [phone] * BALJIT SCREEN W IFA W REFLEX TO TITER (06/05/2017 12:23 PM) BALJIT screen NEGATIVE NEGATIVE [facility] Comment: [facility] BALJIT IFA is a first line screen II for detecting the presence of up to approximately 150 autoantibodies in various autoimmune diseases. A negative BALJIT IFA result suggests BALJIT-associated autoimmune diseases are not present at this time. Visit Physician FAQs for interpretation of all antibodies in the [place], prevalence, and association with diseases at http://education.[employer] Services.com/ faq/WDX737 Specimen Blood Narrative Performed At FASTING:NO [facility] Other Results Text Performing Organization Information: Site ID: IG Name: [facility] Address: [address] [place] [address] Director: Dr. Nishant Mckeon Performing Organization Address [facility]/Zipcode Phone Number [employer] [place] [address] II * MITOCHONDRIAL ANTIBODY W/REFL TITER (06/05/2017 12:23 PM) Mitochondrial Ab NEGATIVE NEGATIVE [facility] Comment: [employer] This test was developed and [facility] its analytical performance characteristics have been determined by [facility]. It has not been cleared or approved by FDA. This assay has been validated pursuant to the CLIA regulations and is used for clinical purposes. Mitochondrial Ab titer TNP titer [facility] Comment: [employer] TNP-Screening test Negative or SJC Not Detected. Titer not performed. Narrative Performed At FASTING:NO [facility] Other Results Text Performing Organization Information: Site ID: EZ Name: [facility], Address: [address] [place] [address] Director: Hipolito Sánchez MD,PhD Performing Organization Address [facility] Medical Centercode Phone Number [employer]/[facility] [phone] [facility] [id number] * RPR titer with reflex to confirmation (06/05/2017 12:23 PM) RPR (dx) w/refl titer and NON-REACTIVE NON-REACTIVE [facility] DIAGNOSTICS confirmatory testing [place] Specimen Blood Narrative Performed At FASTING:NO [facility] Other Results Text Performing Organization Information: Site ID: RGA Name: [facility] Address: [address] [place] [phone] Director: Sobia Bajwa MD Performing Organization Address [facility] Centerc[facility]i Phone [place] [address] [phone] * Hepatitis E virus Ab, IgM by [...] analytical performance characteristics have been determined by [facility]. It has not been cleared or approved by FDA. This assay has been validated pursuant to the CLIA regulations and is used for clinical purposes. Specimen Blood Narrative Performed At FASTING:NO [facility] Other Results Text Performing Organization Information: Site ID: TXC Name: [facility] Address: [address] [place] [address] Director: Walt Morrison MD Performing Organization Address City/State/Zipcode Phone Number [facility] [address] [place] [address] [phone] * Alpha-1 antitrypsin phenotype (06/05/2017 12:23 PM) Alpha-1 antitrypsin SEE NOTE [facility] Comment: DIAGNOSTICS/NOELLE THIS PATIENT'S [facility] [id number] PHENOTYPE IS PI*MM. 90% of normal individuals have the MM phenotype, with normal quantitative AAT levels. Many phenotypic patterns have been described, including deficiency states with F, S, Z, or other alleles. As a general estimation, compared to M allele of 100% of normal R-3-Qcgramlxsvj protein, the S allele produces approximately 60% and the Z allele 20%. For example, an MS phenotype would have about 80% of normal J-9-Cebrbzaqsut protein level, a 50% contribution from the M allele and 30% from the S allele. A ZZ phenotype would have about 20% of normal levels, a 10% contribution from each Z gene. The F allele has normal R-7-Guogvkpjiew levels, but the kinetics of elastase inhibition [...] Performing Organization Information: Site ID: EZ Name: [facility], Address: [address] [place] [address] Director: Hipolito Sánchez MD,PhD Performing Organization Address [facility] Centercode Phone Number [employer]/[facility] [address] [place] [address] [phone] [facility] [id number] * F-actin (smooth muscle) antibody, IgG (06/05/2017 12:23 PM) F-actin (smooth muscle) <20 U [facility] Ab, IgG Comment: DIAGNOSTICS/DRAKE Reference [facility] Range: <20 NEGATIVE > OR=20 POSITIVE Antibodies [...] Performing Organization Information: Site ID: EZ Name: [facility], Address: [address] [place] [address] Director: Hipolito Sánchez MD,PhD Performing Organization Address [facility] Centercohi Phone Number [employer] [address] [place] [address] [facility] [id number] * Alpha-1 antitrypsin level (06/05/2017 12:23 PM) Alpha-1 antitrypsin 170 83 - 199 mg/dL [facility] II Specimen Blood Narrative Performed At FASTING:NO [facility] Other Results Text Performing Organization Information: Site ID: IG Name: [facility] Address: [address] [place] [address] Director: Dr. Nishant Mckeon Performing Organization Address [facility] Centercohi Phone Number [facility] [address] [place] [address] II * Bile acids, total (06/05/2017 12:23 PM) Bile acids, total 9 0 - 19 umol/L [facility] [place] Specimen Blood Narrative Performed At FASTING:NO [facility] Other Results Text Performing Organization Information: Site ID: AMD Name: [facility] Address: [address] [place] [address] Director: Marshall Stovall M.D.,PhD Performing Organization Address City/State/Zipcode Phone Number [facility]/NOELLE [address] [place], [place] [phone] [place] * Hepatitis B core antibody total (06/05/2017 12:23 PM) Hepatitis B core total Ab NON-REACTIVE NON-REACTIVE [facility] [place] Specimen Blood Narrative Performed At FASTING:NO [facility] Other Results Text Performing Organization Information: Site ID: RGA Name: [facility] Address: [address] [place] [phone] Director: Sobia Bajwa MD Performing Organization Address [facility]/State/[facility] Centercode Phone Number [employer] [address] [address] * Sedimentation rate (06/05/2017 12:23 PM) Sedimentation rate 6 < OR=20 mm/h [facility] [place] Specimen Blood Narrative Performed At FASTING:NO [facility] Other Results Text Performing Organization Information: Site ID: RGA Name: [facility] Address: [address] [place] [address] Director: Sobia Bajwa MD Performing Organization Address [facility] Centercode Phone Number [employer] [address] [address] * Thyroid stimulating hormone (06/05/2017 12:23 PM) TSH 0.86 0.40 - 4.50 mIU/L [facility] [place] Specimen Blood Narrative Performed At FASTING:NO [facility] Other Results Text Performing Organization Information: Site ID: RGA Name: [facility] Address: [address] [place] [phone] Director: Sobia Bajwa MD Performing Organization Address [facility] Medical Centercode Phone Number [employer] [address] [address] * Hemoglobin A1c (06/05/2017 12:23 PM) Hemoglobin A1C 6.2 (H) <5.7 % of total Hgb [facility] Comment: [place] For someone without known diabetes, a hemoglobin [...] Performing Organization Information: Site ID: RGA Name: [facility] Address: [address] [place] [phone] Director: Sobia Bajwa MD Performing Organization Address City/State/[facility] Medical Centercode Phone Number [employer] [address] [address] * Ferritin level (06/05/2017 12:23 PM) Ferritin level 36 20 - 380 ng/mL [facility] [place] Specimen Blood Narrative Performed At FASTING:NO [facility] Other Results Text Performing Organization Information: Site ID: RGA Name: [facility] Address: [address] [place] [address] Director: Sobia Bajwa MD Performing Organization Address City/State/Zipcode Phone Number [employer] [address] [address] [phone] after 04/09/2017 Insurance Payer Benefit Subscriber ID Type Phone Address Plan / Group TEXANPLUS TEXANPLUS xxxxxxxxx O [facility]
[2019-03-10 09:49] LABS: INR 1.03
[2019-03-10 09:51] LABS: BASOPHILS # (AUTO) 0.1 (0.0-0.1); BASOPHILS % 0.8 % (0.0-1.0); EOSINOPHILS # (AUTO) 0.1 (0.0-0.4); EOSINOPHILS % 0.9 % (0.0-6.0); HEMATOCRIT 42.8 % (38.2-49.6); HEMOGLOBIN 14.4 g/dL (14.0-18.0); LYMPHOCYTES # (AUTO) 2.6 (1.0-3.2); MEAN CORPUSCULAR HEMOGLOBIN 29.9 pg (28-32); MEAN CORPUSCULAR HGB CONC 33.6 g/dL (31-35); MEAN CORPUSCULAR VOLUME 88.8 fL (81-99); MONOCYTES # (AUTO) 1.3 (0.2-0.8); MONOCYTES % 13.7 % (4.4-11.3); NEUTROPHILS # (AUTO) 5.6 (2.1-6.9); NEUTROPHILS % 56.8 % (38.7-80.0); PLATELET COUNT 273 x10e3/uL (140-360); RED BLOOD COUNT 4.82 x10e6/uL (4.3-5.7)
[2019-03-10 09:57] LABS: ALANINE AMINOTRANSFERASE 475 IU/L (0-55); ALBUMIN 3.9 g/dL (3.5-5.0); ALBUMIN/GLOBULIN RATIO 1.1 (0.8-2.0); ALKALINE PHOSPHATASE 91 IU/L (40-150); ANION GAP 13.1 mmol/L (8-16); BLOOD UREA NITROGEN 16 mg/dL (7-26); BUN/CREATININE RATIO 17 (6-25); CALCIUM 10.4 mg/dL (8.4-10.2); CARBON DIOXIDE 24 mmol/L (22-29); CHLORIDE 104 mmol/L (98-107); CREATININE, SERUM 0.96 mg/dL (0.72-1.25); EST GLOMERULAR FILTRATION RATE > 60 ML/MIN (60-); GLUCOSE 108 mg/dL (74-118); POTASSIUM 4.1 mmol/L (3.5-5.1); SODIUM 137 mmol/L (136-145)
[~2019-03-31] MED LIST: ALIGN4 MG PO; ASPIR 8181 MG PO; AVODART0.5 MG PO; CARAFATE1 GM/10 ML PO; CHOLESTEROL MED PO; CLOPIDOGREL75 MG PO; DIGOXIN125 MCG PO; FAMOTIDINE20 MG PO; MECLIZINE HCL12.5 MG PO; METFORMIN HCL500 MG PO; NEXIUM40 MG PO; PANTOPRAZOLE SO40 MG PO; PROPOFOL IV EMULSION 10 MG/ML 50 ML VIAL ONE; SIMVASTATIN40 MG PO; TAMSULOSIN HCL0.4 MG PO; TIZANIDINE HCL4 MG PO; ULTRAM50 MG PO; XARELTO10 MG PO; Z.0.AMIODARONE HCL20 PO; Z.0.COREG3.125 MG PO; Z.0.COUMADIN2.5 MG PO; Z.0.DIGOXIN125 MCG PO; Z.1.AMOXICILLIN500 M PO
--- OUTSIDE RECORDS SUMMARY | 2019-03-31 06:40 | XMS REPORT | Clinical Summary ---
Author Author [facility] Address Unknown Phone Unavailable Care Team Providers Care Software Programmer Name Role Phone Gerson Chinchilla MD PCP Allergies No Known Allergies Medications End Date Status Medication Sig Dispensed Refills Start Date Active metFORMIN (GLUCOPHAGE) Take 500 mg 0 500 mg tablet by mouth 2 (two) times a day with meals. Active carvedilol (COREG) 12.5 Take 12.5 mg 0 MG tablet by mouth 2 (two) times a day with meals. Active gabapentin (NEURONTIN) Take 300 mg 0 300 mg capsule by mouth 3 (three) times a day. Active famotidine (PEPCID) 40 MG Take 40 mg by 0 tablet mouth daily. Active aspirin (ECOTRIN) 81 MG Take 81 mg by 0 enteric coated tablet mouth daily. Active simvastatin (ZOCOR) 40 MG Take 40 mg by 0 tablet mouth nightly. Active rivaroxaban (XARELTO) 15 Take 15 mg by 0 mg tablet mouth. Active pantoprazole (PROTONIX) Take 40 mg by 0 40 MG EC tablet mouth daily. Active sucralfate (CARAFATE) 1 Take 1 g by 0 gram tablet mouth 4 (four) times a day. Active traMADol (ULTRAM) 50 mg Take 50 mg by 0 tablet mouth every 6 (six) hours as needed for moderate pain. Active digOXIN (LANOXIN) 125 mcg Take 125 mcg 0 tablet by mouth daily. Active meclizine (ANTIVERT) 12.5 Take 12.5 mg 0 mg tablet by mouth 3 (three) times a day as needed for dizziness. Active Problems Problem Noted Date Acute hepatitis 08/20/2017 Hypertension 08/20/2017 Mixed hyperlipidemia 08/20/2017 A-fib 08/20/2017 Social History Date Tobacco Use Types Packs/Day Years Used Never Assessed Sex Assigned at Date Recorded Not on file Industry Job Start Date Occupation Not on file Not on file Not on file Travel End Travel History Travel Start No recent travel history available. Last Filed Vital Signs Not on file Plan of Treatment Health Maintenance Due Date Last Done Comments SHINGLES VACCINES (#1) 1989 65+ PNEUMOCOCCAL VACCINE 2004 (1 of 2 - PCV13) INFLUENZA VACCINE 04/16/2019 Results Not on fileafter 03/30/2018 Insurance Type Payer Benefit Subscriber ID Effective Phone Address Plan / Dates Group HMO [employer] TEX[employer] xxxxxxxxx [id number] calderón Advance Directives Patient has advance care planning documents on file. For more information, ashley dao contact: Jeremy Hermosillo [address] [place] [address]
--- OUTSIDE RECORDS SUMMARY | 2019-03-31 06:40 | XMS REPORT ---
[facility] Address Unknown Phone Unavailable Care Team Providers Care Food Processor Name Role Phone Unavailable Unavailable Payers Payer Name Policy Type Policy Number Effective Date Expiration Date Problems This patient has no known problems. Allergies, Adverse Reactions, Alerts Allergy Name Allergy Type Status Severity Reaction(s) Onset Date Inactive Date Treating Clinician Comments No Known Drug Allergies DA Active U 2013-10-09 00:00:00 Medications This patient has no known medications.
--- OUTSIDE RECORDS SUMMARY | 2019-03-31 06:40 | XMS REPORT | Clinical Summary ---
Author Author [facility] Address Unknown Phone Unavailable Care Team Providers Care Weight Guesser Name Role Phone PCP Unavailable Allergies Not on File Medications Not on file Active Problems Not on file Social History Date Tobacco Use Types Packs/Day Years Used Never Assessed Sex Assigned at Date Recorded Not on file Industry Job Start Date Occupation Not on file Not on file Not on file Travel End Travel History Travel Start No recent travel history available. Last Filed Vital Signs Not on file Plan of Treatment Not on file Results Not on fileafter 03/30/2018
[2019-03-31 10:20] VITALS: BP 124/65
== END | disposition home or self-care (01) ==
LOC: OR 03-25 09:16
PROVIDERS: ATTEND Internal Medicine Gastroenterology
DX: K74.60 Unspecified cirrhosis of liver (principal); I85.10 Secondary esophageal varices without bleeding; K29.80 Duodenitis without bleeding; K44.9 Diaphragmatic hernia without obstruction or gangrene; K21.9 Gastro-esophageal reflux disease without esophagitis; I11.0 Hypertensive heart disease with heart failure; I50.9 Heart failure, unspecified; E11.9 Type 2 diabetes mellitus without complications; E78.5 Hyperlipidemia, unspecified; J44.9 Chronic obstructive pulmonary disease, unspecified; F17.210 Nicotine dependence, cigarettes, uncomplicated; Z01.810 Encounter for preprocedural cardiovascular examination; Z01.812 Encounter for preprocedural laboratory examination; Z79.02 Long term (current) use of antithrombotics/antiplatelets; Z79.84 Long term (current) use of oral hypoglycemic drugs; Z80.0 Family history of malignant neoplasm of digestive organs
CPT/HCPCS: 36415 ×3; 43239; 80053 ×2; 82948; 85025 ×2; 85610 ×2; 85730 ×2; 93005; J2704

== ENCOUNTER → 2020-05-05 | Outpatient (CLI) | payer MEDICARE ==
[~2020-05-05] MED LIST changes: +AMIODARONE HCL200 MG PO; +ETODOLAC500 M1 PO; +FENTANYL CITRATE/PF 100MCG/2 ML INJ ONE; +LIDOCAINE HCL 2% LOCAL INJ 5 ML SDV VIAL INJ ONE; +LIPITOR10 MG PO; +MIDAZOLAM HCL 2 MG/2 ML VIAL ONE; +NAPROXEN250 MG PO; +ONDANSETRON HCL INJ 2MG/ML 2ML 2 MG/ML VIAL ONE; +PREVACID15 MG PO; +PROPOFOL IV EMULSION 10 MG/ML 20 ML VIAL ONE; -PROPOFOL IV EMULSION 10 MG/ML 50 ML VIAL ONE; +SEVOFLURANE INHAL SOLN 250 ML PEN BTL ONE; +SUCRALFATE1 GM PO
[2020-05-05 14:24] LABS: BASOPHILS # (AUTO) 0.1 (0.0-0.1); BASOPHILS % 0.9 % (0.0-1.0); EOSINOPHILS # (AUTO) 0.1 (0.0-0.4); EOSINOPHILS % 0.9 % (0.0-6.0); HEMATOCRIT 40.1 % (38.2-49.6); LYMPHOCYTES % 30.4 % (18.0-39.1); MEAN CORPUSCULAR HEMOGLOBIN 29.4 pg (28-32); MEAN CORPUSCULAR HGB CONC 32.4 g/dL (31-35); MEAN CORPUSCULAR VOLUME 90.7 fL (81-99); MONOCYTES # (AUTO) 1.1 (0.2-0.8); MONOCYTES % 16.4 % (4.4-11.3); NEUTROPHILS # (AUTO) 3.4 (2.1-6.9); PLATELET COUNT 283 x10e3/uL (140-360); RED BLOOD COUNT 4.42 x10e6/uL (4.3-5.7); RED CELL DISTRIBUTION WIDTH 14.7 % (11.7-14.4)
[2020-05-05 14:36] LABS: INR 1.99; PARTIAL THROMBOPLASTIN TIME 45.2 seconds (23.8-35.5); PROTHROMBIN TIME 23.9 seconds (11.9-14.5)
[2020-05-05 14:45] LABS: ALANINE AMINOTRANSFERASE 99 IU/L (0-55); ALBUMIN 3.7 g/dL (3.5-5.0); ALBUMIN/GLOBULIN RATIO 0.9 (0.8-2.0); ALKALINE PHOSPHATASE 65 IU/L (40-150); ANION GAP 14.5 mmol/L (8-16); BLOOD UREA NITROGEN 14 mg/dL (7-26); BUN/CREATININE RATIO 14 (6-25); CALCIUM 10.4 mg/dL (8.4-10.2); CARBON DIOXIDE 22 mmol/L (22-29); CHLORIDE 108 mmol/L (98-107); CREATININE, SERUM 1.01 mg/dL (0.72-1.25); EST GLOMERULAR FILTRATION RATE > 60 ML/MIN (60-); GLUCOSE 96 mg/dL (74-118); POTASSIUM 4.5 mmol/L (3.5-5.1); SODIUM 140 mmol/L (136-145)
== END ==
LOC: DX 13:27 → EDSTATUS 05-10 10:00
PROVIDERS: ATTEND Internal Medicine Gastroenterology
DX: Z01.818 Encounter for other preprocedural examination (principal); K74.60 Unspecified cirrhosis of liver; Z11.59 Encounter for screening for other viral diseases
CPT/HCPCS: 36415; 80053; 85025; 85610; 85730; 93005; U0002; J2001; J2250; J2405; J3010

== ENCOUNTER → 2020-05-17 | Day surgery (SDC) | payer MEDICARE, OTHER ==
[2020-05-13 14:43] LABS: INR 0.99; PROTHROMBIN TIME 13.6 seconds (11.9-14.5)
[2020-05-13 14:49] LABS: PARTIAL THROMBOPLASTIN TIME 29.4 seconds (23.8-35.5)
[~2020-05-17] MED LIST changes: -MIDAZOLAM HCL 2 MG/2 ML VIAL ONE; -ONDANSETRON HCL INJ 2MG/ML 2ML 2 MG/ML VIAL ONE; -SEVOFLURANE INHAL SOLN 250 ML PEN BTL ONE
[2020-05-17 12:25] VITALS: BP 148/79
== END | disposition home or self-care (01) ==
LOC: ENDO 09:12
PROVIDERS: ATTEND Internal Medicine Gastroenterology
DX: K74.60 Unspecified cirrhosis of liver (principal); K29.70 Gastritis, unspecified, without bleeding; I85.10 Secondary esophageal varices without bleeding; K21.0 Gastro-esophageal reflux disease with esophagitis; K44.9 Diaphragmatic hernia without obstruction or gangrene; R63.4 Abnormal weight loss; R10.2 Pelvic and perineal pain; I25.10 Atherosclerotic heart disease of native coronary artery without angina pectoris; E11.9 Type 2 diabetes mellitus without complications; I10 Essential (primary) hypertension; E78.5 Hyperlipidemia, unspecified; M19.90 Unspecified osteoarthritis, unspecified site; F17.210 Nicotine dependence, cigarettes, uncomplicated; Z01.812 Encounter for preprocedural laboratory examination; Z11.59 Encounter for screening for other viral diseases; Z79.84 Long term (current) use of oral hypoglycemic drugs; Z79.02 Long term (current) use of antithrombotics/antiplatelets; Z95.5 Presence of coronary angioplasty implant and graft
CPT/HCPCS: 36415 ×2; 43239; 82948; 85610; 85730; J2001; J2704; J3010; U0002; 43235